=== PATIENT | female | born 1985 | race Caucasian/White ===

== ENCOUNTER 2019-01-21 15:13 | Emergency (ER) | payer MEDICAID ==
[~2019-01-21] VITALS: Ht 167.6 cm; Wt 54.5 kg
[2019-01-21] MEDS ORDERED: PROM5SYR2 PO (15:58)
[2019-01-21 16:09] VITALS: BP 110/56
== END 2019-01-21 16:10 | disposition home or self-care (01) ==
LOC: ER 15:14
DX: R05 Cough (principal); Z79.899 Other long term (current) drug therapy
CPT/HCPCS: 99283